=== PATIENT | male | born 1965 | race Caucasian/White ===

== ENCOUNTER 2023-12-23 11:50 | Emergency (ER) | payer OTHER ==
[~2023-12-23] VITALS: Ht 177.8 cm; Wt 81.6 kg
[2023-12-23 12:13] VITALS: TEMP 98.4
[2023-12-23 13:33] VITALS: PULSE 78; RESP 16
[2023-12-23] MEDS ORDERED: CEFDINIR300 MG PO (13:33)
[2023-12-23] MEDS ORDERED: FLOMAX0.4 MG PO (13:34)
[2023-12-23 13:58] LABS: CLARITY,URINE CLOUDY (CLEAR); COLOR,URINE ORANGE (YELLOW); LEUKOCYTE ESTERASE ,URINE NEGATIVE (NEGATIVE); NITRITE,URINE POSITIVE (NEGATIVE); PH,URINE 7 (5 - 7)
[2023-12-23 13:59] LABS: BILIRUBIN,URINE NEGATIVE (NEGATIVE); GLUCOSE, URINE 1+ (NEGATIVE); KETONES,URINE NEGATIVE (NEGATIVE); PROTEIN,URINE DIPSTICK 1+ (NEGATIVE); URINE UROBILINOGEN 1 mg/dL (0.2 - 1)
[2023-12-23 14:10] LABS: RBC,URINE >50 /HPF (0-5); WBC,URINE (MAN) 0-5 /HPF (0-5)
[2023-12-23 14:20] VITALS: BP 146/98; PULSE 74; RESP 16; O2SAT 98
== END 2023-12-23 14:20 | disposition home or self-care (01) ==
LOC: EDSEX 12:13 → ER 12:13
DX: R30.0 Dysuria (principal); R33.9 Retention of urine, unspecified; R10.30 Lower abdominal pain, unspecified; I10 Essential (primary) hypertension; E78.5 Hyperlipidemia, unspecified; Z85.46 Personal history of malignant neoplasm of prostate
CPT/HCPCS: 81001; 87086; 99283